=== PATIENT | male | born 1940 | race Caucasian/White ===

== ENCOUNTER → 2018-07-12 10:36 | Outpatient (CLI) | payer MEDICARE, SELFPAY ==
--- NOTE | 2018-07-12 10:41 | RAD_ITS ---
STUDY: X-RAY CHEST REASON FOR EXAM: Male, 78 years old. Shortness of breath TECHNIQUE: Frontal and lateral views of the chest COMPARISON: None. FINDINGS: There are mild congestive changes noted. The lungs are otherwise clear. There are no pleural effusions. There is no pneumothorax. The heart is enlarged. 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 The visualized osseous structures are within normal limits. RAD/Chest PA and Lateral IMPRESSION: Cardiomegaly with mild pulmonary vascular congestion. Electronically Signed: Figueroa Valenzuela, at 18:28 EDT Tel , Service support ,
--- NOTE | 2018-07-12 15:11 | PFTCOMP ---
COMPLETE PULMONARY FUNCTION TEST INTERPRETATION Brief HPI: Patient is a 78 year old male, currently under the care of myself, who presents to [facility] for complete pulmonary function tests secondary to diagnosis of dyspnea. Respiratory therapist reports good effort and reproducible results. Interpretation: Forced expiration spirometry shows a mild large airways obstructive ventilatory defect with an FEV1 of 64% predicted. There is no significant bronchodilator response by ATS criteria. Spirograms are of good quality and plateau slowly, indicating slowly emptying areas of the lungs. The respiratory flow volume loop shows decreased expiratory flow rates at high lung volumes consistent with small airways obstruction. Lung volumes by body plethysmography show a decreased total lung capacity at 5.5 L, 77% predicted. All other lung volumes are within normal limits. Diffusion capacity by carbon monoxide is at the lower limit of normal at 71% predicted. The airway resistance is normal. No previous pulmonary function tests were available for review. Impression: Mild mixed ventilatory defect with a symmetric reduction diffusing capacity. No previous pulmonary function tests available for review.
== END ==
PROVIDERS: Family Provider Family Medicine; PCP Family Medicine; Referring Provider Internal Medicine Critical Care Medicine; Visit Provider Internal Medicine Critical Care Medicine
DX: R06.02 Shortness of breath (principal)
CPT/HCPCS: 71046; 94060; 94726; 94729

== ENCOUNTER → 2018-07-14 12:23 | Outpatient (CLI) | payer MEDICARE, SELFPAY ==
[2018-07-14 12:57] VITALS: PULSE 101; PULSE 110; PULSE 78; PULSE 79; PULSE 82; PULSE 86; PULSE 97; PULSE 99; O2SAT 92; O2SAT 94; O2SAT 98
--- NOTE | 2018-07-14 12:59 | CPS ---
Patient did have hip pain throughout the 6 minute walk test. Denise DANIELSON
--- NOTE | 2018-07-14 13:26 | PCM.PSN.6M ---
PSN 6 Minute Walk Test - 6 Minute Walk Test 6 Minute Walk Test: 6 Minute Walk Test PSN:6-Minute Walk Test Start: 07/14/18 12:57 Freq: Status: Active Protocol: [id number].[id number] Document 07/14/18 12:57 JLA (Rec: 07/14/18 13:00 JLA [id number]) 6 Minute Walk Test Date Performed 07/14/18 Time Performed 12:30 Height 6 ft 1 in Weight: 117.934 kg Weight in Pounds 260.[address]: Jose M Alvarado Assistive device used: Cane Pre-test Oxygen Delivery Method Room Air Pulse Ox (%) 92 Pulse Rate (60-100 beats/min) 99 Dyspnea Cady Scale (0-10) 1 Exertion Cady Scale (6-20) 6 1st minute Oxygen Delivery Method Room Air Pulse Ox (%) 98 Pulse Rate (60-100 beats/min) 86 2nd minute Oxygen Delivery Method Room Air Pulse Ox (%) 98 Pulse Rate (60-100 beats/min) 110 H 3rd minute Oxygen Delivery Method Room Air Pulse Ox (%) 98 Pulse Rate (60-100 beats/min) 97 4th minute Oxygen Delivery Method Room Air Pulse Ox (%) 98 Pulse Rate (60-100 beats/min) 101 H 5th minute Oxygen Delivery Method Room Air Pulse Ox (%) 98 Pulse Rate (60-100 beats/min) 82 6th minute Oxygen Delivery Method Room Air Pulse Ox (%) 98 Pulse Rate (60-100 beats/min) 78 Dyspnea Cady Scale (0-10) 3 Exertion Cady Scale (6-20) 13 Post-test Oxygen Delivery Method Room Air Pulse Ox (%) 94 Pulse Rate (60-100 beats/min) 79 Full Laps Walked 9 Partial Lap, Number of Tiles Walked 4 Total Distance Walked (ft) 535 07/14/18 12:59 Cardiopulmonary Services by Denise Anand Patient did have hip pain throughout the 6 minute walk test. Denise DANIELSON Initialized on 07/14/18 12:59 - END OF NOTE - Interpretation Interpretation: Patient was able to ambulate 535 feet over the course of 6 minutes on room air with the assistance of a cane in no breaks. No significant desaturation or tachycardia was noted during testing. Patient did report limitation secondary to hip pain. These findings are consistent with a musculoskeletal limitation exercise tolerance. - Recommendations Recommendations: No supplemental oxygen is indicated at this time.
== END ==
PROVIDERS: Family Provider Family Medicine; PCP Family Medicine; Referring Provider Internal Medicine Critical Care Medicine; Visit Provider Internal Medicine Critical Care Medicine
DX: R06.02 Shortness of breath (principal)
CPT/HCPCS: 94618